=== PATIENT | female | born 1955 | race Caucasian/White ===

== ENCOUNTER 2023-03-17 10:56 | Outpatient (CLI) | payer MEDICARE | END 2023-03-17 10:57 | disposition home or self-care (01) | LOC: CSHULT 10:56 | PROVIDERS: ATTEND Physician Assistant Medical | DX: R76.8 Other specified abnormal immunological findings in serum (principal); R79.89 Other specified abnormal findings of blood chemistry; K76.0 Fatty (change of) liver, not elsewhere classified; R16.1 Splenomegaly, not elsewhere classified | CPT/HCPCS: 76705 ==